=== PATIENT | female | born 2000 | race Caucasian/White ===

== ENCOUNTER 2024-04-09 19:30 | Emergency (ER) | payer OTHER ==
[~2024-04-09 19:30] MED LIST: AMOX-430 PO
[2024-04-10] MEDS ORDERED: NAPR-1164 PO (17:23)
== END 2024-04-09 23:05 | disposition left against medical advice (07) ==
LOC: ER 19:32
DX: Z53.21 Procedure and treatment not carried out due to patient leaving prior to being seen by health care provider (principal)

== ENCOUNTER → 2024-04-10 | Emergency (ER) | payer OTHER ==
[~2024-04-10] VITALS: Ht 165.1 cm; Wt 63.5 kg
[~2024-04-10] MED LIST changes: +NAPR-1164 PO
[2024-04-10 17:17] VITALS: BP 121/69; TEMP 97.9
[2024-04-10 17:34] VITALS: O2SAT 100
== END | disposition home or self-care (01) ==
LOC: ER 17:10
DX: S39.012A Strain of muscle, fascia and tendon of lower back, initial encounter (principal); S13.4XXA Sprain of ligaments of cervical spine, initial encounter; V49.40XA Driver injured in collision with unspecified motor vehicles in traffic accident, initial encounter; Y93.89 Activity, other specified; Y92.89 Other specified places as the place of occurrence of the external cause; Y99.8 Other external cause status